=== PATIENT | female | born 1990 | race American Indian/Alaskan Native ===

== ENCOUNTER 2019-03-08 18:24 | Emergency (ER) | payer SELFPAY | END 2019-03-08 21:30 | disposition left against medical advice (07) | LOC: ED 18:24 | DX: R51 Headache (principal); Z53.21 Procedure and treatment not carried out due to patient leaving prior to being seen by health care provider ==

== ENCOUNTER 2021-10-04 10:45 | Emergency (ER) | payer MEDICAID ==
[2021-10-04 12:15] LABS: Hematocrit 32.6 % (30.3-42.9); Hemoglobin 10.8 gm/dl (10.1-14.3); Mean Corpuscular HGB Conc 33 % (30-34); Mean Corpuscular Volume 85 fl (79-97); Platelet Count 279 K/mm3 (140-440); Red Blood Count 3.86 M/mm3 (3.65-5.03); Red Cell Distribution Width 14.5 % (13.2-15.2)
[2021-10-04 12:29] LABS: Blood Urea Nitrogen 6 mg/dL (7-17); Hemolysis Index 0
[2021-10-04 12:40] LABS: BUN/Creatinine Ratio 15
[2021-10-04 14:06] LABS: Bilirubin,Urine NEG (Negative); Blood,Urine NEG (Negative); Color,Urine Yellow (Yellow); Protein,Urine <15 mg/dL mg/dL (Negative); Urobilinogen,Urine < 2.0 mg/dL (<2.0)
[2021-10-04 14:12] LABS: Bacteria,Urine 1+ /HPF (Negative); Mucus,Urine 2+ /HPF
== END 2021-10-04 18:00 | disposition left against medical advice (07) ==
LOC: ED 10:45
DX: O26.892 Other specified pregnancy related conditions, second trimester (principal); R10.9 Unspecified abdominal pain; Z53.21 Procedure and treatment not carried out due to patient leaving prior to being seen by health care provider
CPT/HCPCS: 36415; 80048; 81001; 84702; 85027; 86900; 86901